=== PATIENT | male | born 1990 | race Two or more races ===

== ENCOUNTER 2017-06-28 15:49 | Emergency (ER) | payer MEDICAID ==
[~2017-06-28] VITALS: Ht 167.6 cm; Wt 86.2 kg
[2017-06-28 15:55] VITALS: BP 128/98
--- NOTE | 2017-06-28 16:00 | NUR ---
PRESENTS SELF TO ED "WANTS TO BE SEEN FOR S/P METHAMPHETAMINE USE" TODAY @ NOON. PATIENT IS AWAKE, ALERT AND ORIENTED. APPEARS IN NO APPARENT DISTRESS. HOWEVER PATIENT APPEARS ANXIOUS. SKIN IS WARM TO TOUCH AND NON DIAPHORETIC. PATIENT AFEBRILE./ VSS
--- NOTE | 2017-06-28 16:17 | NUR ---
KARYN GREENE AT BEDSIDE FOR EVALUATION
--- NOTE | 2017-06-28 16:20 | NUR ---
Patient eloped from facility. ER MD notified.
== END 2017-06-28 16:32 | disposition left against medical advice (07) ==
LOC: ER 15:51
DX: F15.10 Other stimulant abuse, uncomplicated (principal); F10.10 Alcohol abuse, uncomplicated; Z53.20 Procedure and treatment not carried out because of patient's decision for unspecified reasons
CPT/HCPCS: 99281; A4606; Z7610; Z7502

== ENCOUNTER 2019-11-17 20:32 | Emergency (ER) | payer MEDICAID ==
[~2019-11-17] VITALS: Ht 170.2 cm; Wt 88.5 kg
[2019-11-17 20:43] VITALS: BP 109/66
--- NOTE | 2019-11-17 20:46 | NUR ---
ATTEMPTED TO WALK PATIENT FROM [facility] TO ER BED. PT GOT UP FROM [facility] AND STATES HE DOES NOT WANT TO BE SEEN BY MD, WALKED OUT OF [facility] ER. AMBULATORY WITH STEADY GAIT. ER MD AWARE
== END 2019-11-17 20:51 | disposition left against medical advice (07) ==
LOC: ER 20:36
DX: M79.672 Pain in left foot (principal); Z53.21 Procedure and treatment not carried out due to patient leaving prior to being seen by health care provider